=== PATIENT | male | born 1960 | race Caucasian/White ===

== ENCOUNTER → 2020-11-15 | Outpatient (CLI) | payer MEDICARE, OTHER ==
[~2020-11-15] MED LIST: ASPIRIN CHEWABL81 MG PO; CLARITIN-D 121 EACH PO; CLARITIN10 MG PO; PROTONIX40 MG PO; SINGULAIR10 MG PO; ZOFRAN4 MG PO
== END ==
LOC: KOH-I 13:42
DX: M21.619 Bunion of unspecified foot (principal); M79.671 Pain in right foot; M79.672 Pain in left foot; M19.071 Primary osteoarthritis, right ankle and foot; M19.072 Primary osteoarthritis, left ankle and foot
CPT/HCPCS: 73630